=== PATIENT | female | born 1985 | race Two or more races ===

== ENCOUNTER 2024-03-25 16:13 | Emergency (ER) | payer OTHER ==
[~2024-03-25] VITALS: Ht 152.4 cm; Wt 108.9 kg
[2024-03-25] MEDS ORDERED: MORPHINE SULFATE INJ 2 MG/ML DISP.SYRIN ONE (16:49)
[2024-03-25] MEDS: MORPHINE SULFATE INJ 2 MG/ML DISP.SYRIN IM ONE (17:06)
[2024-03-25] MEDS ORDERED: LIDOCAINE 1%-EPI 1:100,000 20 ML VIAL ONE (18:48)
[2024-03-25] MEDS ORDERED: ACETAMINOPHEN ES 500 MG TABLET ONE (19:28)
[2024-03-25] MEDS: ACETAMINOPHEN ES 500 MG TABLET PO ONE (19:28)
[2024-03-25] MEDS ORDERED: IBUP-1955 PO (19:40)
[2024-03-25] MEDS ORDERED: ACET-2605 PO (19:40)
[2024-03-25 20:05] VITALS: BP 118/70; TEMP 98.7; O2SAT 98
== END 2024-03-25 20:07 | disposition home or self-care (01) ==
LOC: ER 16:13
DX: S01.111A Laceration without foreign body of right eyelid and periocular area, initial encounter (principal); S09.90XA Unspecified injury of head, initial encounter; M79.641 Pain in right hand; M25.561 Pain in right knee; Z88.0 Allergy status to penicillin; W18.30XA Fall on same level, unspecified, initial encounter; Y93.89 Activity, other specified; Y92.89 Other specified places as the place of occurrence of the external cause; Y99.8 Other external cause status
CPT/HCPCS: 99285; 70450; 96372; 73130; 73564; 70486; A6403; J3490; J2270